=== PATIENT | female | born 1955 | race Hispanic/Latino ===

== ENCOUNTER → 2024-07-01 | Outpatient (CLI) | payer MEDICARE ==
[~2024-07-01] MED LIST: ALPR0.5T8 PO; ATOR40TA71 PO; DICL50TA9 PO; IOHEXOL-350 50ML VIAL IV ONE; IOHEXOL-350 75 ML VIAL IV ONE; METO-408 PO; OMEP40CA21 PO; metoPROLOL tartRATE 1 MG/ML 5ML VIAL IV ONE; vitamin d2 PO
--- NOTE | 2024-07-01 14:44 | HMCIMG ---
CT CARDIAC ANGIO W/CONT. CCTA REASON: ATHSCL HEART DISEASE OF [place] CORONARY ARTERY COMPARISON: None TECHNIQUE: Images are obtained through the heart in the axial plane before and during bolus IV contrast infusion, 100 cc Omnipaque 350. 2-D and 3-D multiplanar reconstruction images were then performed. The injection had to be repeated once due to motion artifact on the first sequence, total contrast volume was 200 cc. FINDINGS: This dictation is for the noncardiac findings only. Cardiac and coronary artery findings are reported separately. Visualized portions of the lungs are clear. There is normal-appearing pulmonary interstitium. There is no hilar or mediastinal lymphadenopathy. Chest wall structures appear unremarkable. IMPRESSION: 1. Unremarkable noncardiac portions of CT cardiac angiography.
== END | disposition home or self-care (01) ==
LOC: RAH 10:39
PROVIDERS: ATTEND Internal Medicine Cardiovascular Disease
DX: I25.10 Atherosclerotic heart disease of native coronary artery without angina pectoris (principal)
CPT/HCPCS: 75574; J3490; Q9967 ×2